=== PATIENT | female | born 1985 | race Caucasian/White ===

== ENCOUNTER → 2020-10-03 | Outpatient (CLI) | payer OTHER ==
[~2020-10-03] MED LIST: CEFDINIR300 MG; PREDNISONE10 MG; TESSALON PERLE100 MG; Z VITAMIN E; Z.0.B-12250 MCG; Z.0.SYNTHROID75 MCG PO; Z.0.TERBINAFINE HC25; [UNRECOGNIZED DRUG - OTHER] PO
== END ==
LOC: RAD 07:43
PROVIDERS: ATTEND Obstetrics & Gynecology Gynecology
DX: O24.919 Unspecified diabetes mellitus in pregnancy, unspecified trimester (principal)
CPT/HCPCS: 93005